=== PATIENT | female | born 1980 | race Caucasian/White ===

== ENCOUNTER 2019-08-11 03:07 | Emergency (ER) | payer MEDICAID, SELFPAY ==
[2019-08-11 03:13] VITALS: BP 130/80; PULSE 112; RESP 20; TEMP 36.7; O2SAT 98; BMI 29.7
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
[2019-08-11] MEDS: acetaminophen-codeine 300-30mg Tablet 1 TAB PO (03:57)
[2019-08-11] MEDS: ibuprofen 600 mg Tablet PO (03:58)
[2019-08-11 04:17] VITALS: BP 126/74; PULSE 106; RESP 18; O2SAT 98
== END 2019-08-11 03:45 | disposition home or self-care (01) ==
PROVIDERS: Emergency Provider Emergency Medicine
DX: L55.9 Sunburn, unspecified (principal)
CPT/HCPCS: 12345; 99281; 99283

== ENCOUNTER → 2019-10-25 14:52 | Outpatient (BNVA) | payer MEDICAID, SELFPAY | PROVIDERS: Referring Provider Internal Medicine; Visit Provider Internal Medicine | DX: E05.90 Thyrotoxicosis, unspecified without thyrotoxic crisis or storm (principal); E04.1 Nontoxic single thyroid nodule; E66.9 Obesity, unspecified; R63.5 Abnormal weight gain | CPT/HCPCS: 99203 ==

== ENCOUNTER 2019-11-11 18:00 | Emergency (ER) | payer MEDICAID, SELFPAY ==
[2019-11-11 18:12] VITALS: BP 149/84; PULSE 76; RESP 18; TEMP 36.3; O2SAT 98; BMI 29.2
== END 2019-11-11 22:12 ==
LOC: ER 18:04
PROVIDERS: Emergency Provider Emergency Medicine
DX: Z53.21 Procedure and treatment not carried out due to patient leaving prior to being seen by health care provider (principal)
CPT/HCPCS: 99281; 99282

== ENCOUNTER → 2019-12-16 14:20 | Outpatient (BNVA) | payer MEDICAID, SELFPAY | PROVIDERS: Visit Provider Internal Medicine | DX: E04.1 Nontoxic single thyroid nodule (principal); E05.90 Thyrotoxicosis, unspecified without thyrotoxic crisis or storm; E66.9 Obesity, unspecified | CPT/HCPCS: 99214 ==

== ENCOUNTER 2019-12-20 15:13 | Outpatient (CLI) | payer MEDICAID, SELFPAY ==
[2019-12-20 17:06] LABS: Free T4 Free Thyroxine 1.47 ng/dL (0.82-1.77); Thyroid Stimulating Hormone 0.01 uIU/mL (0.27-4.20)
[2019-12-21 06:18] LABS: T3 Total 169 ng/dL (76-181)
== END 2019-12-20 15:14 | disposition home or self-care (01) ==
LOC: LAB 15:17
PROVIDERS: Visit Provider Internal Medicine
DX: E05.90 Thyrotoxicosis, unspecified without thyrotoxic crisis or storm (principal)
CPT/HCPCS: 36415; 84439; 84443; 84480

== ENCOUNTER → 2020-04-16 10:51 | Outpatient (BNVA) | payer MEDICAID, SELFPAY | PROVIDERS: Visit Provider Nurse Practitioner | DX: E55.9 Vitamin D deficiency, unspecified (principal); E05.90 Thyrotoxicosis, unspecified without thyrotoxic crisis or storm; E66.9 Obesity, unspecified; Z68.33 Body mass index [BMI] 33.0-33.9, adult; G43.109 Migraine with aura, not intractable, without status migrainosus; E05.00 Thyrotoxicosis with diffuse goiter without thyrotoxic crisis or storm; Z30.46 Encounter for surveillance of implantable subdermal contraceptive | CPT/HCPCS: 80053; 80061; 82306; 84439; 84443; 84481; 85025; 85651; 86140 ==

== ENCOUNTER 2020-05-21 15:56 | Outpatient (CLI) | payer MEDICAID, SELFPAY ==
--- NOTE | 2020-05-21 16:19 | XRR_ITS ---
PROCEDURE INFORMATION: Exam: XR Right Knee Exam date and time: 05/21/2020 4:19 PM Age: 39 years old Clinical indication: Pain; Knee; Right; Additional info: M25.50 - pain in unspecified joint TECHNIQUE: Imaging protocol: XR Right knee. Views: 3 views. Total images: 3 COMPARISON: No relevant prior studies available. FINDINGS: Bones/joints: No visible acute osseous abnormality, fracture, subluxation, or dislocation. No radiographically visible joint effusion. Soft tissues: Soft tissues without evidence of edema, swelling, contusion, emphysema, or radiopaque foreign body. XR/XR knee RT 3V* [id number] IMPRESSION: Nonacute.
--- NOTE | 2020-05-21 16:19 | XRR_ITS ---
PROCEDURE INFORMATION: Exam: XR Cervical Spine Exam date and time: 05/21/2020 4:19 PM Age: 39 years old Clinical indication: Neck pain; Additional info: M25.50 - pain in unspecified joint TECHNIQUE: Imaging protocol: XR of the cervical spine. Views: 2 or 3 views. Total images: 3 COMPARISON: No relevant prior studies available. FINDINGS: Bones/joints: No visible fracture, subluxation, or dislocation. Intervertebral disc space heights preserved. No visible spondylolisthesis. Mild scoliotic curvature. No visible significant facet arthrosis. Soft tissues: Unremarkable. XR/XR cervical spine 3V* [id number] IMPRESSION: Nonacute.
--- NOTE | 2020-05-21 16:19 | XRR_ITS ---
PROCEDURE INFORMATION: Exam: XR Thoracic Spine Exam date and time: 05/21/2020 4:19 PM Age: 39 years old Clinical indication: Pain in thoracic spine; Additional info: M25.50 - pain in unspecified joint TECHNIQUE: Imaging protocol: XR of the thoracic spine. Views: 3 views. Total images: 3 COMPARISON: No relevant prior studies available. FINDINGS: Bones/joints: Normal. No acute fracture. Normal alignment. Soft tissues: Unremarkable. XR/XR thoracic spine 3V* [id number] IMPRESSION: No acute findings.
--- NOTE | 2020-05-21 16:19 | XRR_ITS ---
PROCEDURE INFORMATION: Exam: XR Lumbosacral Spine Exam date and time: 05/21/2020 4:31 PM Age: 39 years old Clinical indication: Low back pain; Prior surgery; Surgery type: C section; Additional info: M25.50 - pain in unspecified joint TECHNIQUE: Imaging protocol: XR of the lumbosacral spine. Views: 2 or 3 views. Total images: 3 COMPARISON: CT abdomen pelvis w con* [id number] 02/01/2018 11:46 PM FINDINGS: Bones/joints: Normal. No acute fracture. Normal alignment. No visible spondylolysis or spondylolisthesis. Soft tissues: Unremarkable. XR/XR lumbar spine 2-3V* [id number] IMPRESSION: No acute findings.
--- NOTE | 2020-05-21 16:19 | XRR_ITS ---
PROCEDURE INFORMATION: Exam: XR Left Knee Exam date and time: 05/21/2020 4:19 PM Age: 39 years old Clinical indication: Pain; Knee; Left; Additional info: M25.50 - pain in unspecified joint TECHNIQUE: Imaging protocol: XR Left knee. Views: 3 views. Total images: 3 COMPARISON: No relevant prior studies available. FINDINGS: Bones/joints: Normal. Soft tissues: Normal. XR/XR knee LT 3V* [id number] IMPRESSION: No acute findings.
== END 2020-05-21 15:57 | disposition home or self-care (01) ==
LOC: RAD 15:59
PROVIDERS: Visit Provider Nurse Practitioner
DX: M25.50 Pain in unspecified joint (principal); M54.6 Pain in thoracic spine; M54.5 Low back pain; M25.561 Pain in right knee; M25.562 Pain in left knee; M54.2 Cervicalgia
CPT/HCPCS: 72040; 72072; 72100; 73562

== ENCOUNTER 2020-10-06 10:20 | Outpatient (CLI) | payer MEDICAID, SELFPAY ==
[2020-10-06 10:40] LABS: Basophils % 0.3 %; Eosinophils # 0.1 10^3/uL (0.0-0.8); Eosinophils % 1.9 %; Hematocrit 35.5 % (37.0-47.0); Hemoglobin 11.9 g/dL (11.5-15.3); Lymphocytes # 1.9 10^3/uL (0.8-4.8); Lymphocytes % 31.8 %; Mean Corpuscular HGB Conc 33.5 g/dL (30.0-36.0); Mean Corpuscular Hemoglobin 31.6 pg (28.0-34.0); Mean Corpuscular Volume 94.4 fl (81-99); Mean Platelet Volume 9.9 fL (7.4-10.4); Monocytes # 0.4 10^3/uL (0.2-0.9); Monocytes % 6.7 %; Neutrophils # 3.51 10^3/uL (1.8-7.7); Neutrophils % 59.1 %; Nucleated Red Blood Cells % 0 %; Platelet Count 255 10^3/cmm (130-400); Red Blood Count 3.76 10^6/uL (4.1-5.3); Red Cell Distribution Width 11.9 % (12.1-15.1); White Blood Count 5.9 10^3/uL (4.0-10.0)
[2020-10-06 11:47] LABS: Alanine Aminotransferase 12 U/L (0-33); Alkaline Phosphatase 58 IU/L (35-105); Anion Gap 12.8 (5-19); Aspartate Amino Transferase 16 U/L (0-32); Blood Urea Nitrogen 6 mg/dL (6-20); Calcium 8.3 mg/dL (8.5-10.5); Carbon Dioxide 23 mmol/L (22-29); Chloride 106 mmol/L (98-107); Chol HDL Ratio 2.76 mg/dL (0.0-4.40); Cholesterol 138 mg/dL (0-200); Globulin 2.7 g/dL (1.3-4.6); Glomerular Filtration Rate 111.9 mL/min (90-130); Glucose 78 mg/dL (65-115); HDL Cholesterol 50 mg/dL (60-100); LDL Cholesterol Calculated 74 mg/dL (50-129); LDL HDL Ratio 1.48 RATIO (0.00-3.22); Osmolality Calculated 282 mOsm/kg (285-295); Potassium 3.8 mmol/L (3.5-5.1); Sodium 138 mmol/L (136-145); Total Bilirubin 0.5 mg/dL (0.15-1.2); Total Protein 6.7 g/dL (6.6-8.7); Triglycerides 69 mg/dL (0-150)
== END 2020-10-06 10:21 | disposition home or self-care (01) ==
PROVIDERS: PCP Nurse Practitioner; Visit Provider Family Medicine
DX: E05.90 Thyrotoxicosis, unspecified without thyrotoxic crisis or storm (principal)
CPT/HCPCS: 80053; 80061; 84443; 85025

== ENCOUNTER 2020-10-24 12:23 | Emergency (ER) | payer MEDICAID, SELFPAY ==
[2020-10-24 12:34] VITALS: BP 139/81; PULSE 86; RESP 17; TEMP 37.1; O2SAT 98
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
--- NOTE | 2020-10-24 13:18 | PC.PHAR ---
PT STATES SHE TAKES CARE OF HER OWN MEDICATIONS-PT STATES SHE STOP TAKING HER CYMBALTA 30MG ON 10/08/20 RX WAS FILLED ON 10/06/20 30DS FOR 30MG DAILY-PT STATES SHE HASNT TAKEN LINZESS 145MCG,METHIMAZOLE 10MG, OR TOPIRAMATE 100MG FOR AT LEAST 4 MONTHS-PT STATES SHE TOOK SOME OF HER HUSBANDS GABAPENTIN 600MG LAST NIGHT TO SEE IF IT WOULD HELP WITH HER PAIN
[2020-10-24 13:52] VITALS: BP 111/77; PULSE 76; RESP 18; O2SAT 97
== END 2020-10-24 13:50 | disposition home or self-care (01) ==
PROVIDERS: Emergency Provider Nurse Practitioner Family; PCP Nurse Practitioner
DX: S13.4XXA Sprain of ligaments of cervical spine, initial encounter (principal); V53.5XXA Driver of pick-up truck or van injured in collision with car, pick-up truck or van in traffic accident, initial encounter
CPT/HCPCS: 72040; 99282

== ENCOUNTER → 2021-02-25 14:35 | Outpatient (BNVA) | payer MEDICAID, SELFPAY | PROVIDERS: PCP Nurse Practitioner; Visit Provider Nurse Practitioner | DX: E05.00 Thyrotoxicosis with diffuse goiter without thyrotoxic crisis or storm (principal) | CPT/HCPCS: 80053; 80061; 84439; 84443; 84481 ==

== ENCOUNTER 2021-04-15 09:26 | Outpatient (CLI) | payer MEDICAID, SELFPAY ==
--- NOTE | 2021-04-15 09:38 | XR_ITS ---
WS: [id number] DEXA (DUAL ENERGY X-RAY ABSORPTIOMETRY) Bone mineral density was performed using a [employer] machine. HISTORY: FX HX OF OSTEOPOROSIS/VITAMIN D DEFICIENCY/BONE PAIN, 40-year-old. COMPARISON: None available. Lumbar spine BMD (L1-L4): 1.089 g/cm2 T score: -0.8 Z score: -1.9 Total hip BMD: Left: 0.973 g/cm2. T score: -0.3 Z score: -0.9 Right: 0.910 g/cm2. T score: -0.8 Z score: -1.4 XR/XR DEXA axial skeleton* [id number] IMPRESSION: NORMAL BONE MINERAL DENSITY based upon the WHO classification for females.
== END 2021-04-15 09:27 | disposition home or self-care (01) ==
LOC: RAD 09:29
PROVIDERS: Visit Provider Family Medicine
DX: E55.9 Vitamin D deficiency, unspecified (principal); M89.8X9 Other specified disorders of bone, unspecified site; Z82.62 Family history of osteoporosis
CPT/HCPCS: 77080

== ENCOUNTER 2021-04-17 09:24 | Outpatient (CLI) | payer MEDICAID, SELFPAY ==
[2021-04-17 09:59] LABS: Basophils % 0.3 %; Eosinophils # 0.1 10^3/uL (0.0-0.8); Eosinophils % 2.3 %; Hematocrit 40.2 % (37.0-47.0); Hemoglobin 13.5 g/dL (11.5-15.3); Lymphocytes # 2.2 10^3/uL (0.8-4.8); Lymphocytes % 36.4 %; Mean Corpuscular HGB Conc 33.6 g/dL (30.0-36.0); Mean Corpuscular Hemoglobin 30.9 pg (28.0-34.0); Mean Platelet Volume 10.1 fL (7.4-10.4); Monocytes # 0.4 10^3/uL (0.2-0.9); Monocytes % 5.8 %; Neutrophils # 3.29 10^3/uL (1.8-7.7); Nucleated Red Blood Cells % 0 %; Platelet Count 278 10^3/cmm (130-400); Red Blood Count 4.37 10^6/uL (4.1-5.3); Red Cell Distribution Width 11.9 % (12.1-15.1)
[2021-04-17 10:29] LABS: Alanine Aminotransferase 13 U/L (0-33); Albumin Level 4.7 g/dL (3.5-5.2); Alkaline Phosphatase 64 IU/L (35-105); Anion Gap 12.2 (5-19); Aspartate Amino Transferase 14 U/L (0-32); Blood Urea Nitrogen 10 mg/dL (6-20); Carbon Dioxide 23 mmol/L (22-29); Chloride 105 mmol/L (98-107); Globulin 3.1 g/dL (1.3-4.6); Glomerular Filtration Rate 111.9 mL/min (90-130); Glucose 76 mg/dL (65-115); Osmolality Calculated 280 mOsm/kg (285-295); Potassium 4.2 mmol/L (3.5-5.1); Sodium 136 mmol/L (136-145); Total Bilirubin 0.5 mg/dL (0.15-1.2); Total Protein 7.8 g/dL (6.6-8.7)
[2021-04-17 10:31] LABS: Erythrocyte Sedimentation Rate 9 mm/hr (0-15)
[2021-04-17 12:51] LABS: 25 Hydroxy Vitamin D 35 ng/mL (30-100)
== END 2021-04-17 09:25 | disposition home or self-care (01) ==
LOC: LAB 09:27
PROVIDERS: PCP Nurse Practitioner; Visit Provider Nurse Practitioner
DX: M79.7 Fibromyalgia (principal); E55.9 Vitamin D deficiency, unspecified
CPT/HCPCS: 36415; 80053; 82306; 85025; 85651; 86140; 86431

== ENCOUNTER → 2021-05-01 13:29 | Outpatient (BNVA) | payer MEDICAID, SELFPAY | PROVIDERS: PCP Nurse Practitioner; Visit Provider Internal Medicine | DX: M79.7 Fibromyalgia (principal); M53.3 Sacrococcygeal disorders, not elsewhere classified; M54.81 Occipital neuralgia; R53.83 Other fatigue; Z82.61 Family history of arthritis; Z87.891 Personal history of nicotine dependence | CPT/HCPCS: 99204 ==

== ENCOUNTER 2021-05-03 08:41 | Outpatient (CLI) | payer MEDICAID, SELFPAY ==
--- NOTE | 2021-05-03 09:03 | XR_ITS ---
WS: [id number] Right hand, 2 views, 05/03/2021 Clinical Data: E55.9 - Vitamin D deficiency, unspecified Comparison: None. Findings: No fractures or dislocations are seen. The soft tissues are unremarkable. The joint space s are normal No periarticular demineralization or calcifications are seen. XR/XR hand RT 2V [id number] Impression: Negative right hand.
--- NOTE | 2021-05-03 09:03 | XR_ITS ---
WS: [id number] Left hand, 2 views, 05/03/2021 Clinical Data: E55.9 - Vitamin D deficiency, unspecified Comparison: None. Findings: No fractures or dislocations are seen. The soft tissues are unremarkable. The joint spaces are normal XR/XR hand LT 2V [id number] Impression: Negative left hand.
[2021-05-03 09:43] LABS: Creatine Phosphokinase 111 U/L (26-192); Ferritin 31 ng/mL (15-150); Iron 116 ug/dL (37-145); Magnesium 1.7 mg/dL (1.7-2.3)
[2021-05-03 09:57] LABS: Vitamin B12 449 pg/mL (232-1245)
[2021-05-03 10:03] LABS: Cortisol Random 7.46 ug/dL (2.47-19.5); Hepatitis B Core AB, Total Non-Reactive (Nonreactive); Hepatitis B Surface Antigen Non-Reactive (Nonreactive); Hepatitis C Virus Antibody Non-Reactive (Nonreactive)
[2021-05-06 11:21] LABS: COMPLEMENT COMPONENT C3C 121 mg/dL (83-193); COMPLEMENT COMPONENT C4C 25 mg/dL (15-57)
[2021-05-06 12:48] LABS: Gliadin Ab.IgA <1.0 U/mL; Gliadin Ab.IgG 2.1 U/mL; Tissue Transglutaminase IgA Ab <1.0 U/mL; Tissue transglutaminase Ab.IgG <1.0 U/mL
[2021-05-06 13:34] LABS: THYROID PEROXIDASE ANTIBODIES 358 IU/mL (<9)
[2021-05-06 13:53] LABS: Lymes IGG WB <0.90 index
[2021-05-06 14:03] LABS: CENTROMERE B ANTIBODY <1.0 NEG AI (<1.0 NEG); JO-1 ANTIBODY <1.0 NEG AI (<1.0 NEG); RNP ANTIBODY <1.0 NEG AI (<1.0 NEG); SCL-70 ANTIBODY <1.0 NEG AI (<1.0 NEG); SJOGREN'S ANTIBODY (SS-A) <1.0 NEG AI (<1.0 NEG); SM ANTIBODY <1.0 NEG AI (<1.0 NEG); SS-B <1.0 NEG AI (<1.0 NEG)
[2021-05-06 15:23] LABS: Immunoglobulin A 105 mg/dL (47-310)
[2021-05-06 15:26] LABS: COMPLEMENT, TOTAL (CH50) >60 U/mL (31-60)
[2021-05-07 12:23] LABS: ANA SCREEN, IFA POSITIVE (NEGATIVE)
[2021-05-07 15:36] LABS: DNA AB (DS) CRITHIDIA,IFA NEGATIVE (NEGATIVE)
== END 2021-05-03 08:42 | disposition home or self-care (01) ==
LOC: LAB 08:43
PROVIDERS: PCP Nurse Practitioner; Visit Provider Internal Medicine
DX: E55.9 Vitamin D deficiency, unspecified (principal); E05.00 Thyrotoxicosis with diffuse goiter without thyrotoxic crisis or storm; I10 Essential (primary) hypertension; K58.2 Mixed irritable bowel syndrome; M54.2 Cervicalgia; M79.7 Fibromyalgia
CPT/HCPCS: 36415; 73120; 82533; 82550; 82607; 82728; 82784; 83516; 83540; 83735; 86140; 86160; 86162; 86235; 86255; 86376; 86617; 86704; 86803; 87340

== ENCOUNTER → 2021-05-31 08:50 | Outpatient (BNVA) | payer MEDICAID, SELFPAY | PROVIDERS: PCP Nurse Practitioner; Visit Provider Internal Medicine | DX: M79.7 Fibromyalgia (principal); M25.50 Pain in unspecified joint; R76.8 Other specified abnormal immunological findings in serum; R53.83 Other fatigue; Z79.899 Other long term (current) drug therapy | CPT/HCPCS: 99214 ==

== ENCOUNTER → 2021-07-09 10:32 | Outpatient (BNVA) | payer MEDICAID, SELFPAY | PROVIDERS: PCP Nurse Practitioner; Visit Provider Nurse Practitioner | DX: I10 Essential (primary) hypertension (principal); E66.9 Obesity, unspecified; E55.9 Vitamin D deficiency, unspecified; M25.50 Pain in unspecified joint; M25.562 Pain in left knee | CPT/HCPCS: 73562; 82306 ==

== ENCOUNTER 2021-07-14 15:08 | Emergency (ER) | payer MEDICAID, SELFPAY ==
[2021-07-14 15:19] VITALS: BP 139/90; PULSE 69; RESP 16; TEMP 37.3; O2SAT 98; BMI 33.7
--- NOTE | 2021-07-14 15:36 | CTR_ITS ---
PROCEDURE INFORMATION: Exam: CT Abdomen And Pelvis Without Contrast Exam date and time: 07/14/2021 4:36 PM Age: 41 years old Clinical indication: Abdominal pain; Flank; Right; Additional info: Abd pain TECHNIQUE: Imaging protocol: Computed tomography of the abdomen and pelvis without contrast. Radiation optimization: All CT scans at this facility use at least one of these dose optimization techniques: automated exposure control; mA and/or kV adjustment per patient size (includes targeted exams where dose is matched to clinical indication); or iterative reconstruction. COMPARISON: CT abdomen pelvis w con* [id number] 02/01/2018 11:46 PM RADIATION DOSE METRICS: Total DLP (mGy-cm): 1752.15 FINDINGS: Liver: Normal. No mass. Gallbladder and bile ducts: Normal. No calcified stones. No ductal dilation. Pancreas: Normal. No ductal dilation. Spleen: Normal. No splenomegaly. Adrenal glands: Normal. No mass. Kidneys and ureters: Normal. No renal stone or hydronephrosis. Stomach and bowel: Unremarkable. No obstruction. No mucosal thickening. Appendix: The appendix is normal. Intraperitoneal space: Unremarkable. No free air. No significant fluid collection. Vasculature: Unremarkable. No abdominal aortic aneurysm. Lymph nodes: Unremarkable. No enlarged lymph nodes. Urinary bladder: Faint perivesicular fat stranding is appreciated. Reproductive: The uterus and ovaries appear normal. Bones/joints: Unremarkable. No acute fracture. Soft tissues: Unremarkable. CT/CT abdomen pelvis wo con [id number] IMPRESSION: Possible mild cystitis, correlate with urinalysis. No renal stone is seen.
--- NOTE | 2021-07-14 15:38 | ED_ITS ---
HPI - Abdominal Pain General: Chief Complaint: Abdominal Pain Stated Complaint: Right side abd pain Time Seen by Provider: 07/14/21 15:13 Source: patient Mode of arrival: ambulatory Limitations: no limitations History of Present Illness: 41-year-old female states that she had woke up this morning with right-sided flank pain also right side abdominal pain states she feels like she is having spasms in her right flank. She denies any vomiting diarrhea denies any fever she denies any worsening proving factors she states her pain currently is a 6 out of 10. MD elicited complaint: abdominal pain Associated Symptoms: Denies chills and fever(s) Review of Systems Const: Denies: fever(s), chills, body aches or change in appetite Eyes: Denies: blurry vision or eye discomfort ENMT: Denies: throat pain or dental pain Card: Denies: chest pain Resp: Denies: dyspnea GI: Reports: abdominal pain : Reports: flank pain Musc: Denies: neck pain or back pain Skin/Breast: Denies: rash Neuro: Denies: headache(s) Psych: Denies: depression Brian/Lymph: Denies: easy bruising All/Imm: Denies: urticaria PFSH ED PFSH: Medical History NEIDA positive Essential hypertension Graves disease Diagnosed in 2017 Irritable bowel syndrome with constipation and diarrhea Migraine with aura and without status migrainosus, not intractable Migraines since age 27 No pertinent past medical history Denies diabetes, asthma, hypertension, seizures, DVT/PE PCP: EMIL Ureña Surgical History S/P dilation and curettage 2015-done for miscarriage Status post delivery X2 2002, 2005 Family History Mother Hypertension Family/Other Breast cancer maternal aunt, diagnosed at age 67 Thyroid condition maternal aunt Other Cancer Chronic kidney disease (CKD) Diabetes Rheumatoid arthritis Denies family history of Colon cancer Ovarian cancer Lupus CAD (coronary artery disease) Hyperlipidemia Uterine cancer Stroke Social History Smoking and tobacco status: never smoked Second hand smoke exposure: No Smoking risk assessment/counseling performed?: No Alcohol intake: current Alcohol intake frequency: few times a month Desire information about alcohol rehabilitation?: No Counseling given: No Desire information about substance/drug rehabilitation?: No Counseling given: No Adopted: No Caregiver/support person: No Lives independently: Yes Household members: spouse Housing: House Marital status: Number of children: 2 service: Yes Current occupational status: employed History of recent travel: No Current gender identity: Female Physical Exam Const: COMMON NORMALS: no acute distress, patient oriented x3 and healthy appearing HENMT: COMMON NORMALS: normocephalic and atraumatic HEAD & SCALP: no rmocephalic and atraumatic Eye: COMMON NORMALS: Equal, round and reactive pupils present and EOMs intact bilaterally PUPIL: Yes Equal, round and reactive pupils present Neck/C-Spine: COMMON NORMALS: full ROM and supple Chest: COMMONS NORMALS: normal inspection of the chest and normal palpation of entire chest wall Resp: COMMON NORMALS: normal respiratory effort, No retractions, No use of accessory muscles and clear to auscultation bilaterally AUSCULTATION: clear to auscultation bilaterally Cardio: COMMON NORMALS: regular rate, regular rhythm and No murmurs present (Cardio) RATE: regular rate RHYTHM: regular rhythm GI: COMMON NORMALS: Normal to inspection, nondistended, normoactive bowel sounds present, Soft to palpation, non-tender and no masses PALPATION: Yes Soft to palpation : COMMON NORMALS: Yes no CVA tenderness BLADDER/KIDNEY EXAM: Yes no CVA tenderness Back/Pelvis: COMMON NORMALS: no CVA tenderness Extremity: COMMON NORMALS: normal to inspection and full ROM Neuro: COMMON NORMALS: patient oriented x3, moves all extremities and no focal motor deficits Psych: COMMON NORMALS: mental status grossly normal, Normal thought process present and cooperative THOUGHT PROCESS: Normal thought process present Skin: COMMON NORMALS: no rashes or lesions noted and no wounds GENERAL SKIN EXAM: no rashes or lesions noted Course Vital Signs: Vital signs: Vital Signs Temperature 99.2 F 07/14/21 15:19 Pulse Rate 88 07/14/21 15:52 Respiratory Rate 18 07/14/21 15:52 Blood Pressure 140/89 07/14/21 15:52 Pulse Oximetry 99 07/14/21 15:52 MDM - Abdominal Pain Medical Decision Making Patient presents here with abdominal pain with a possible UTI she feels much improved discharge exam at discharge is benign she is stable for discharge we will place her on Keflex she is to return if worsening follow-up PCP she understands agrees to plan. Lab Data : 07/14/21 15:40 07/14/21 15:40 Labs/Radiology: Radiology Impressions Abdomen/Pelvis CT 07/14/21 15:36 IMPRESSION: Possible mild cystitis, correlate with urinalysis. No renal stone is seen. Laboratory Results WBC 8.1 10^3/uL (4.0-10.0) 07/14/21 15:40 RBC 3.90 10^6/uL (4.1-5.3) L 07/14/21 15:40 Hgb 12.5 g/dL (11.5-15.3) 07/14/21 15:40 Hct 35.7 % (37.0-47.0) L 07/14/21 15:40 MCV 91.5 fl (81-99) 07/14/21 15:40 MCH 32.1 pg (28.0-34.0) 07/14/21 15:40 MCHC 35.0 g/dL (30.0-36.0) 07/14/21 15:40 RDW 11.9 % (12.1-15.1) L 07/14/21 15:40 Plt Count 270 10^3/cmm (130-400) 07/14/21 15:40 MPV 10.0 fL (7.4-10.4) 07/14/21 15:40 Neut % (Auto) 58.0 % 07/14/21 15:40 Lymph % (Auto) 33.5 % 07/14/21 15:40 [place] % (Auto) 6.2 % 07/14/21 15:40 Eos % (Auto) 2.0 % 07/14/21 15:40 Baso % (Auto) 0.1 % 07/14/21 15:40 Neut # (Auto) 4.71 10^3/uL (1.8-7.7) 07/14/21 15:40 Lymph # (Auto) 2.7 10^3/uL (0.8-4.8) 07/14/21 15:40 [place] # (Auto) 0.5 10^3/uL (0.2-0.9) 07/14/21 15:40 Eos # (Auto) 0.2 10^3/uL (0.0-0.8) 07/14/21 15:40 Baso # (Auto) 0.0 10^3/uL (0.0-0.1) 07/14/21 15:40 Nucleated RBC % (auto) 0 % 07/14/21 15:40 Nucleated RBCs # 0.0 /100WBC 07/14/21 15:40 Sodium 136 mmol/L (136-145) 07/14/21 15:40 Potassium 4.2 mmol/L (3.5-5.1) 07/14/21 15:40 Chloride 103 mmol/L (98-107) 07/14/21 15:40 Carbon Dioxide 23 mmol/L (22-29) 07/14/21 15:40 Anion Gap 14.2 (5-19) 07/14/21 15:40 BUN 7 mg/dL (6-20) 07/14/21 15:40 Creatinine 0.7 mg/dL (0.5-0.9) 07/14/21 15:40 GFR Calculation 93.2 mL/min (90-130) 07/14/21 15:40 Glucose 97 mg/dL (65-115) 07/14/21 15:40 Calculated Osmolality 280 mOsm/kg (285-295) L 07/14/21 15:40 Calcium 8.1 mg/dL (8.5-10.5) L 07/14/21 15:40 Total Bilirubin 0.3 mg/dL (0.15-1.2) 07/14/21 15:40 AST 16 U/L (0-32) 07/14/21 15:40 ALT 11 U/L (0-33) 07/14/21 15:40 Alkaline Phosphatase 59 IU/L (35-105) 07/14/21 15:40 Total Protein 6.5 g/dL (6.6-8.7) L 07/14/21 15:40 Albumin 4.3 g/dL (3.5-5.2) 07/14/21 15:40 Globulin 2.2 g/dL (1.3-4.6) 07/14/21 15:40 Lipase 25 U/L (13-60) 07/14/21 15:40 HCG, Qual Negative (Negative) 07/14/21 15:40 Urine Color Dark yellow (Yellow) 07/14/21 15:50 Urine Appearance Clear (CLEAR) 07/14/21 15:50 Urine pH 6 (5-7) 07/14/21 15:50 Ur Specific [place] 1.020 (1.005-1.030) 07/14/21 15:50 Urine Protein Neg (Negative) 07/14/21 15:50 Urine Glucose (UA) Norm (Normal) 07/14/21 15:50 Urine Ketones Negative (Negative) 07/14/21 15:50 Urine Blood 3+ (Negative) H 07/14/21 15:50 Urine Nitrate Negative (Negative) 07/14/21 15:50 Urine Bilirubin Neg (Negative) 07/14/21 15:50 Urine Urobilinogen 4 mg/dL (Negative) H 07/14/21 15:50 Ur Leukocyte Esterase Negative (Negative) 07/14/21 15:50 Urine RBC 5-10 /hpf (0-2) H 07/14/21 15:50 Urine WBC 0-4 /hpf (0-5) H 07/14/21 15:50 Ur Squamous Epith Cells 10-15 /hpf (0-5) H 07/14/21 15:50 Amorphous Sediment Not Reportable 07/14/21 15:50 Urine Bacteria 1+ /hpf (NONE) H 07/14/21 15:50 Urine Mucus 2+ /hpf 07/14/21 15:50 Discharge Plan Discharge Patient Disposition: Home Clinical Impression: Abdominal pain Qualifiers: Abdominal location: generalized Qualified Code(s): R10.84 - Generalized abdominal pain Acute cystitis Qualifiers: Hematuria presence: without hematuria Qualified Code(s): N30.00 - Acute cystitis without hematuria Condition: Stable Prescriptions: New cephalexin 500 mg capsule 500 mg PO TID 7 Days Qty: 21 0RF ondansetron 4 mg tablet,disintegrating 4 mg PO Q6H PRN (Reason: nausea and vomiting) Qty: 14 0RF Naprosyn 500 mg tablet 500 mg PO BID PRN (Reason: pain) Qty: 20 0RF No Action Nexplanon 68 mg implant See Rx Instructions .ROUTE .COMPLEX 0RF Rx Instructions: subdermally EVERY 3 YEARS meloxicam 15 mg tablet 15 mg PO DAILY Qty: 30 2RF valsartan [Diovan] 40 mg tablet 40 mg PO DAILY Qty: 90 0RF Ozempic 0.25 mg or 0.5 mg(2 mg/1.5 mL) pen injector 0.5 mg SUBCUT .weekly Qty: 1.5 0RF ergocalciferol (vitamin D2) 1,250 mcg (50,000 unit) capsule 1,250 mcg PO Q7D Qty: 4 1RF Rx Instructions: ON MONDAYS Tylenol Extra Strength 500 mg Tablet 1,000 mg PO Q4H PRN (Reason: Pain) 0RF Discharge Orders: Discharge ED (Routine); Ordered 07/14/21 Ordered By: Lakia Lai Referrals: Omaira Velazquez, [employer] [Primary Care Provider] - 1-3 days Discharge Diet: Advance as tolerated Discharge Activity: Resume usual activity Patient Instructions: Abdominal Pain (ED) Coding Level of Care Code ED Crayon Sawyer for George Fwd Exam Comprehensive
[2021-07-14] MEDS: sodium chloride 0.9% 1,000 ML 999 ML IV (15:51)
[2021-07-14] MEDS: ondansetron 2 mg/ML SDV 2 mL 4 MG IVP (15:51)
[2021-07-14 15:52] VITALS: BP 140/89; PULSE 88; RESP 18; O2SAT 99
[2021-07-14 15:54] LABS: Basophils % 0.1 %; Eosinophils # 0.2 10^3/uL (0.0-0.8); Hematocrit 35.7 % (37.0-47.0); Hemoglobin 12.5 g/dL (11.5-15.3); Lymphocytes # 2.7 10^3/uL (0.8-4.8); Lymphocytes % 33.5 %; Mean Corpuscular Hemoglobin 32.1 pg (28.0-34.0); Mean Corpuscular Volume 91.5 fl (81-99); Monocytes # 0.5 10^3/uL (0.2-0.9); Monocytes % 6.2 %; Neutrophils # 4.71 10^3/uL (1.8-7.7); Nucleated Red Blood Cells % 0 %; Platelet Count 270 10^3/cmm (130-400); Red Cell Distribution Width 11.9 % (12.1-15.1); White Blood Count 8.1 10^3/uL (4.0-10.0)
[2021-07-14 16:14] LABS: HCG, Serum Qual Negative (Negative)
[2021-07-14 16:16] LABS: Alanine Aminotransferase 11 U/L (0-33); Albumin Level 4.3 g/dL (3.5-5.2); Alkaline Phosphatase 59 IU/L (35-105); Blood Urea Nitrogen 7 mg/dL (6-20); Calcium 8.1 mg/dL (8.5-10.5); Carbon Dioxide 23 mmol/L (22-29); Chloride 103 mmol/L (98-107); Globulin 2.2 g/dL (1.3-4.6); Glomerular Filtration Rate 93.2 mL/min (90-130); Glucose 97 mg/dL (65-115); Lipase 25 U/L (13-60); Osmolality Calculated 280 mOsm/kg (285-295); Sodium 136 mmol/L (136-145); Total Bilirubin 0.3 mg/dL (0.15-1.2); Total Protein 6.5 g/dL (6.6-8.7)
[2021-07-14 16:21] LABS: Add Urine Microscopic? YES; Bilirubin Urine Neg (Negative); Blood Urine 3+ (Negative); Glucose Urine UA Norm (Normal); Ketones Urine Negative (Negative); Leukocyte Esterase Urine Negative (Negative); Nitrate Urine Negative (Negative); Protein Urine Neg (Negative); Urine Appearance Clear (CLEAR); Urine Color Dark Yellow (Yellow); Urobilinogen Urine 4 mg/dL (Negative); pH Urine 6 (5-7)
[2021-07-14 16:28] LABS: Anion Gap 14.2 (5-19); Aspartate Amino Transferase 16 U/L (0-32); Potassium 4.2 mmol/L (3.5-5.1)
[2021-07-14 16:40] LABS: Bacteria Urine 1+ /hpf; Mucus Urine 2+ /hpf; WBC Urine 0-4 /hpf (0-5)
[2021-07-14 16:41] LABS: Add Urine Culture? No
[2021-07-14 17:24] VITALS: BP 126/78; PULSE 70; RESP 18; TEMP 36.9; O2SAT 90
== END 2021-07-14 17:33 | disposition home or self-care (01) ==
PROVIDERS: Emergency Provider Emergency Medicine; PCP Nurse Practitioner
DX: R10.84 Generalized abdominal pain (principal); N30.00 Acute cystitis without hematuria
CPT/HCPCS: 74176; 80053; 81001; 83690; 84703; 85025; 96361; 96374; 99284; J2405; J7030

== ENCOUNTER → 2021-07-17 13:32 | Outpatient (BNVA) | payer MEDICAID, SELFPAY | PROVIDERS: PCP Nurse Practitioner; Referring Provider Nurse Practitioner; Visit Provider Specialist | DX: M25.562 Pain in left knee (principal) | CPT/HCPCS: 73560; 73565; 99204 ==

== ENCOUNTER → 2021-08-21 14:39 | Outpatient (BNVA) | payer MEDICAID, SELFPAY | PROVIDERS: PCP Nurse Practitioner; Visit Provider Internal Medicine | DX: M79.7 Fibromyalgia (principal); R53.83 Other fatigue; R76.8 Other specified abnormal immunological findings in serum; R31.9 Hematuria, unspecified | CPT/HCPCS: 81001; 83735; 84100; 84443; 85651; 86140; 87086; 99214 ==

== ENCOUNTER → 2023-04-09 08:57 | Outpatient (BNVA) | payer MEDICAID, SELFPAY | PROVIDERS: PCP Nurse Practitioner; Visit Provider Nurse Practitioner | DX: E55.9 Vitamin D deficiency, unspecified (principal); E05.00 Thyrotoxicosis with diffuse goiter without thyrotoxic crisis or storm; I10 Essential (primary) hypertension | CPT/HCPCS: 80053; 82306; 84443 ==

== ENCOUNTER 2023-04-23 14:26 | Emergency (ER) | payer MEDICAID, SELFPAY ==
[2023-04-23 14:30] VITALS: BP 166/103; PULSE 83; RESP 16; TEMP 36.6; O2SAT 97
--- NOTE | 2023-04-23 14:41 | XR_ITS ---
WS: [id number] Exam: XR ankle LT min 3V* [id number] Date/Time of Exam: 04/23/2023 2:41 PM Reason For Exam: left ankle pain Findings: Multiple views of the ankle reveal no fracture or displacements of bone. No soft tissue swelling is present. There are no periosteal reactions noted. The talus and calcaneus are in adequate position. The joint space is smooth and equidistant. IMPRESSION: Negative LEFT ankle.
--- NOTE | 2023-04-23 14:42 | XR_ITS ---
WS: [id number] Exam: XR foot LT min 3V* [id number] Date/Time of Exam: 04/23/2023 2:42 PM Reason For Exam: left foot pain Findings: The foot was examined in multiple views and reveals no fractures or displacements of bone. No bony a nomalies are noted. The bony elements are in adequate alignment. The joint spaces are smooth and eq uidistant. IMPRESSION: Negative LEFT foot.
--- NOTE | 2023-04-23 14:45 | W.ED.EXTPRO ---
Documented by User: GERMÁN Parrish 04/23/23 15:40 HPI - Extremity Problem General: Chief complaint: Extremity Injury, Lower Stated complaint: left foot pains Time Seen by Provider: 04/23/23 14:34 Source: patient Mode of arrival: ambulatory Limitations: no limitations History of Present Illness: Patient is a 42-year-old female with past medical history of fibromyalgia who presents to the emergency department complaining of left foot pain onset 2 weeks. Patient states she was walking outside when she stepped in a mud hole and felt immediate pain to the lateral aspect of her left foot. She denies any twisting injury or hearing any pop, and denies any prior surgeries to the ankle. She does state that she has a history of recurrent ankle sprains to the same ankle, and believes that her foot is unstable. She also notes that she is starting to have pain to the left ankle. She has used ice at night, as well as heat with minimal relief. She states that her pain is worse when she puts all her weight on it, but it is not reproducible with palpation. The pain is getting worse and has become more constant since onset. She denies any paresthesias, numbness, weakness, bruising, or overlying skin changes. MD Complaint: extremity pain (Left foot) and joint pain (Left ankle) Onset (ago): week(s) (2) Pain Consistency: constant Location: left Radiation: proximal Relieving factors: cold therapy and rest Exacerbating factors: weight bearing and walking Associated symptoms: Reports no associated symptoms; Deny chest pain, fever(s) or rash Context: other (History of fibromyalgia) Review of Systems General: Reports: 10 or more systems reviewed and unremarkable except in HPI and below Const: Denies: fever(s), chills or fatigue Eyes: Denies: change in vision ENMT: Denies: throat pain, ear or mastoid pain or nasal discharge Card: Denies: chest pain, palpitations, swelling of feet/ankles or lightheadedness Resp: Denies: dyspnea, productive cough or wheezing GI: Denies: abdominal pain, nausea, vomiting, diarrhea or constipation : Denies: flank pain, difficulty voiding, dysuria or urinary frequency Musc: Reports: extremity pain (Left foot) and joint pain (Left ankle); Denies: neck pain, back pain, extremity swelling, joint swelling, joint redness, joint warmth, joint stiffness or limited range of motion Skin/Breast: Denies: rash Neuro: Reports: difficulty walking (From pain); Denies: headache(s), numbness in extremities, weakness in extremities, sensory changes, lack of coordination or dizziness PFSH ED PFSH: Medical History NEIDA positive Essential hypertension Irritable bowel syndrome with constipation and diarrhea No pertinent past medical history Denies diabetes, asthma, hypertension, seizures, DVT/PE PCP: EMIL Ureña Migraine with aura and without status migrainosus, not intractable Migraines since age 27 Graves disease Diagnosed in 2017 Surgical History S/P dilation and curettage 2014-done for miscarriage Status post delivery X2 2002, 2005 Family History Mother Hypertension Family/Other Breast cancer maternal aunt, diagnosed at age 67 Thyroid disease maternal aunt Other Cancer Chronic kidney disease (CKD) Diabetes Rheumatoid arthritis Denies family history of Colon cancer Ovarian cancer Lupus CAD (coronary artery disease) Hyperlipidemia Uterine cancer Stroke Social History Smoking and tobacco/nicotine status: former use of tobacco/nicotine Second hand smoke exposure: No Alcohol intake: current Alcohol intake frequency: few times a month Substance/Drug Use: unknown Adopted: No Caregiver/support person: No Lives independently: Yes Household members: spouse Housing: House Marital status: Number of children: 2 service: Yes Current occupational status: employed Do you think of yourself as: Straight/Heterosexual Current gender identity: Female Female Reproductive History: Date of last menstrual period: 04/22/23 Physical Exam Const: COMMON NORMALS: no acute distress, patient oriented x3 and no limitations GENERAL APPEARANCE: cooperative, comfortable and well developed ORIENTATION/CONSCIOUSNESS: Yes awake, Yes oriented to person, Yes oriented to place and Yes oriented to time HENMT: COMMON NORMALS: normocephalic, atraumatic and hearing grossly normal bilaterally HEAD & SCALP: normocephalic and atraumatic Eye: COMMON NORMALS: EOMs intact bilaterally and conjunctivae normal CONJUNCTIVA: Yes conjunctivae normal Neck/C-Spine: COMMON NORMALS: full ROM Resp: COMMON NORMALS: normal respiratory effort, No retractions and No use of accessory muscles Extremity: COMMON NORMALS: normal to inspection, full ROM, capillary refill normal, no joint enlargement, no clubbing, cyanosis or edema, no calf tenderness and no pedal edema OTHER: Lateral left foot is tender to palpation, with no specific bony point tenderness. No forefoot tenderness to palpation. She has a positive inversion and eversion ankle testing. Negative calcaneal squeeze or ankle squeeze. Negative talar tilt. No evidence of bruising or deformity. No erythema. Sensations intact distally. Good strength bilaterally. Neuro: COMMON NORMALS: patient oriented x3, moves all extremities, no focal motor deficits and no sensory deficits noted SENSORIUM/ORIENTATION: Yes oriented to person, Yes oriented to place and Yes oriented to time Psych: COMMON NORMALS: mental status grossly normal and Normal thought process present THOUGHT PROCESS: Normal thought process present Skin: COMMON NORMALS: no rashes or lesions noted GENERAL SKIN EXAM: no rashes or lesions noted Course Vital Signs: Vital signs: Vital Signs Temperature 97.9 F 04/23/23 14:30 Pulse Rate 83 04/23/23 14:30 Respiratory Rate 16 04/23/23 14:30 Blood Pressure 166/103 04/23/23 14:30 Pulse Oximetry 97 04/23/23 14:30 Oxygen Delivery Me thod Room Air 04/23/23 14:30 MDM - Extremity (Nontraumatic) Medical Decision Making This patient is a 42-year-old female who was seen and evaluated in the emergency department today for left foot and ankle pain onset 2 weeks. Patient's vitals have been unremarkable throughout her ED course. Pain improved after administration of p.o. Tylenol. Examination was overall unremarkable aside from some tenderness with range of motion with inversion and eversion of the left ankle/foot. No bony point tenderness. X-ray of the left foot and left ankle were both unremarkable and showed no signs of acute fracture or dislocation. Patient will be put in a posterior short leg splint and given follow-up for podiatry. Patient agrees with this plan and reasons to return are discussed. Patient discharged home. All radiology interpretation(s) finalized by discharge Discharge Plan Discharge Patient Disposition: Home Clinical Impression: Left foot pain Condition: Stable Prescriptions: No Action Nexplanon 68 mg implant See Rx Instructions .ROUTE .COMPLEX Rx Instructions: subdermally EVERY 3 YEARS gabapentin 100 mg capsule 100 mg PO BID Rx Instructions: AT bed time acarbose 25 mg tablet 25 mg PO TID Qty: 90 2RF Rx Instructions: take before food cyclobenzaprine 5 mg tablet 5 mg PO .HS PRN (Reason: muscle pain) Qty: 90 1RF ergocalciferol (vitamin D2) 1,250 mcg (50,000 unit) capsule 1,250 mcg PO Q7D Qty: 4 5RF Discharge Orders: Discharge ED (Routine); Ordered 04/23/23 Ordered By: Ibrahima Burns Referrals: Omaira Velazquez FNP-C [Primary Care Provider] - Discharge Diet: Usual diet Discharge Activity: Limit activity as instructed Patient Instructions: Foot Sprain (ED) Activity Restrictions/Additional Instructions: Use crutches for weightbearing. Tylenol or ibuprofen as needed for pain. Ice and elevation.. Follow-up with podiatry. Return with any new or worsening symptoms. Coding Level of Care Code ED [employer] for Chg Fwd Documented by User: Donovan Powers DO 04/24/23 06:10 HPI - Extremity Problem General: Chief complaint: Extremity Injury, Lower Stated complaint: left foot pains Time Seen by Provider: 04/23/23 14:34 PFSH ED PFSH: Medical History NEIDA positive Essential hypertension Irritable bowel syndrome with constipation and diarrhea No pertinent past medical history Denies diabetes, asthma, hypertension, seizures, DVT/PE PCP: EMIL Ureña Migraine with aura and without status migrainosus, not intractable Migraines since age 27 Graves disease Diagnosed in 2017 Surgical History S/P dilation and curettage 2014-done for miscarriage Status post delivery X2 2002, 2005 Family History Mother Hypertension Family/Other Breast cancer maternal aunt, diagnosed at age 67 Thyroid disease maternal aunt Other Cancer Chronic kidney disease (CKD) Diabetes Rheumatoid arthritis Denies family history of Colon cancer Ovarian cancer Lupus CAD (coronary artery disease) Hyperlipidemia Uterine cancer Stroke Social History Smoking and tobacco/nicotine status: former use of tobacco/nicotine Second hand smoke exposure: No Alcohol intake: current Alcohol intake frequency: few times a month Substance/Drug Use: unknown Adopted: No Caregiver/support person: No Lives independently: Yes Household members: spouse Housing: House Marital status: Number of children: 2 service: Yes Current occupational status: employed Do you think of yourself as: Straight/Heterosexual Current gender identity: Female Course Vital Signs: Vital signs: Vital Signs Temperature 97.9 F 04/23/23 14:30 Pulse Rate 83 04/23/23 14:30 Respiratory Rate 16 04/23/23 14:30 Blood Pressure 166/103 04/23/23 14:30 Pulse Oximetry 97 04/23/23 14:30 Oxygen Delivery Me thod Room Air 04/23/23 14:30 MDM - Extremity (Nontraumatic) Medical Decision Making This patient is a 42-year-old female who was seen and evaluated in the emergency department today for left foot and ankle pain onset 2 weeks. Patient's vitals have been unremarkable throughout her ED course. Pain improved after administration of p.o. Tylenol. Examination was overall unremarkable aside from some tenderness with range of motion with inversion and eversion of the left ankle/foot. No bony point tenderness. X-ray of the left foot and left ankle were both unremarkable and showed no signs of acute fracture or dislocation. Patient will be put in a posterior short leg splint and given follow-up for podiatry. Patient agrees with this plan and reasons to return are discussed. Patient discharged home... Chart reviewed and patient discussed with midlevel. Agree with assessment and plan. Discharge Plan Discharge Patient Disposition: Home Clinical Impression: Left foot pain Condition: Stable Prescriptions: No Action Nexplanon 68 mg implant See Rx Instructions .ROUTE .COMPLEX Rx Instructions: subdermally EVERY 3 YEARS gabapentin 100 mg capsule 100 mg PO BID Rx Instructions: AT bed time acarbose 25 mg tablet 25 mg PO TID Qty: 90 2RF Rx Instructions: take before food cyclobenzaprine 5 mg tablet 5 mg PO .HS PRN (Reason: muscle pain) Qty: 90 1RF ergocalciferol (vitamin D2) 1,250 mcg (50,000 unit) capsule 1,250 mcg PO Q7D Qty: 4 5RF Discharge Orders: Discharge ED (Routine); Ordered 04/23/23 Ordered By: Ibrahima Burns Referrals: Omaira Velazquez, [employer] WORKER[employer] [Primary Care Provider] - Discharge Diet: Usual diet Discharge Activity: Limit activity as instructed Patient Instructions: Foot Sprain (ED) Activity Restrictions/Additional Instructions: Use crutches for weightbearing. Tylenol or ibuprofen as needed for pain. Ice and elevation.. Follow-up with podiatry. Return with any new or worsening symptoms. Coding Level of Care Code ED [employer] for George Garza
[2023-04-23] MEDS: acetaminophen 325 mg Tablet 1000 MG PO (14:51)
--- NOTE | 2023-04-24 04:10 | DCPLANNER ---
Message sent to Podiatry for follow up- complaining of left foot pain onset 2 weeks
== END 2023-04-23 15:49 | disposition home or self-care (01) ==
PROVIDERS: Emergency Provider Physician Assistant; PCP Nurse Practitioner
DX: M79.672 Pain in left foot (principal); Z87.891 Personal history of nicotine dependence; I10 Essential (primary) hypertension
CPT/HCPCS: 29515; 73610; 73630; 99283; E0114

== ENCOUNTER → 2023-05-12 13:30 | Outpatient (BNVA) | payer MEDICAID, SELFPAY | PROVIDERS: PCP Nurse Practitioner; Visit Provider Nurse Practitioner Women's Health | DX: Z30.46 Encounter for surveillance of implantable subdermal contraceptive (principal); Z30.9 Encounter for contraceptive management, unspecified; Z11.3 Encounter for screening for infections with a predominantly sexual mode of transmission | CPT/HCPCS: 86592; 86803; 87340; 87806 ==

== ENCOUNTER → 2023-08-12 13:46 | Outpatient (BNVA) | payer MEDICAID, SELFPAY | PROVIDERS: PCP Nurse Practitioner; Visit Provider Nurse Practitioner | DX: E55.9 Vitamin D deficiency, unspecified (principal); E05.00 Thyrotoxicosis with diffuse goiter without thyrotoxic crisis or storm; R00.0 Tachycardia, unspecified; G43.109 Migraine with aura, not intractable, without status migrainosus; M25.50 Pain in unspecified joint | CPT/HCPCS: 80053; 82306; 82607; 84443 ==

== ENCOUNTER 2023-09-14 20:04 | Emergency (ER) | payer MEDICAID, SELFPAY ==
[2023-09-14 20:20] VITALS: BP 147/90; PULSE 72; RESP 16; TEMP 36.8; O2SAT 100
--- NOTE | 2023-09-14 21:19 | ED_ITS ---
HPI - Headache General: Chief Complaint: Headache Stated Complaint: Headace Time Seen by Provider: 09/14/23 20:53 Source: patient Mode of arrival: ambulatory Limitations: no limitations History of Present Illness: Patient is a 43-year-old female who presents to the emergency department complaining of headache onset this morning. Patient reports history of migraines. States that the pain is behind the left eye, states this feels identical to prior migraines just worse. Pain began at 0630 this morning and has worsened throughout the day. States that it is worsened with bright lights. She denies any unilateral numbness, weakness, tingling, denies vomiting or nausea, denies visual changes, and has no other concerning symptoms to report at this time. She has not taken anything for her symptoms and does not see neurology. MD elicited complaint: migraine Pertinent past history: migraines Onset (ago): hour(s) Time: 06:30 Onset description: gradually Location: left and retro-orbital Severity: severe Pain scale (0-10): 9 Exacerbating factors: movement of head/neck and light Relieving factors: nothing Context: occurred at rest Associated symptoms: Deny chest pain, fever(s), lightheadedness, nausea, rash or vomiting Treatments prior to arrival: none Review of Systems General: Reports: 10 or more systems reviewed and unremarkable except in HPI and below Const: Denies: fever(s), chills or fatigue Eyes: Denies: change in vision ENMT: Denies: throat pain, ear or mastoid pain or nasal discharge Card: Denies: chest pain, palpitations, swelling of feet/ankles or lightheadedness Resp: Denies: dyspnea, productive cough or wheezing GI: Denies: abdominal pain, nausea, vomiting, diarrhea or constipation : Denies: flank pain, difficulty voiding, dysuria or urinary frequency Musc: Denies: neck pain, back pain or joint pain Skin/Breast: Denies: rash Neuro: Reports: headache(s); Denies: numbness in extremities or weakness in extremities PFS ED PFSH: Medical History NEIDA positive Essential hypertension Irritable bowel syndrome with constipation and diarrhea No pertinent past medical history Denies diabetes, asthma, hypertension, seizures, DVT/PE PCP: EM[facility]re[facility] Migraine with aura and without status migrainosus, not intractable Migraines since age 27 Graves disease Diagnosed in 2017 Surgical History S/P dilation and curettage 2015-done for miscarriage Status post delivery X2 2002, 2005 Family History Mother Hypertension Family/Other Breast cancer maternal aunt, diagnosed at age 67 Thyroid disease maternal aunt Other Cancer Chronic kidney disease (CKD) Diabetes Rheumatoid arthritis Denies family history of Colon cancer Ovarian cancer Lupus CAD (coronary artery disease) Hyperlipidemia Uterine cancer Stroke Social History Smoking and tobacco/nicotine status: former use of tobacco/nicotine Second hand smoke exposure: No Alcohol intake: current Alcohol intake frequency: few times a month Substance/Drug Use: unknown Adopted: No Caregiver/support person: No Lives independently: Yes Household members: spouse Housing: House Marital status: Number of children: 2 service: Yes Current occupational status: employed Do you think of yourself as: Straight/Heterosexual Current gender identity: Female Physical Exam Const: COMMON NORMALS: patient oriented x3 and no limitations GENERAL APPEARANCE: cooperative and well developed ORIENTATION/CONSCIOUSNESS: Yes awake, Yes oriented to person, Yes oriented to place and Yes oriented to time OTHER: Has eyes covered with a shirt on entry into the emergency room HENMT: COMMON NORMALS: normocephalic, atraumatic and hearing grossly normal bilaterally HEAD & SCALP: normocephalic and atraumatic Eye: COMMON NORMALS: Equal, round and reactive pupils present, EOMs intact bilaterally and conjunctivae normal CONJUNCTIVA: Yes conjunctivae normal PUPIL: Yes Equal, round and reactive pupils present Neck/C-Spine: COMMON NORMALS: full ROM, supple and no JVD Resp: COMMON NORMALS: normal respiratory effort, No retractions, No use of accessory muscles and clear to auscultation bilaterally AUSCULTATION: clear to auscultation bilaterally Cardio: COMMON NORMALS: no JVD, regular rate, regular rhythm, No clicks present (Cardio), No murmurs present (Cardio) and No rub (Cardio) RATE: regular rate RHYTHM: regular rhythm Extremity: COMMON NORMALS: normal to inspection, full ROM and capillary refill normal Neuro: COMMON NORMALS: patient oriented x3, CN's II-XII intact bilaterally, moves all extremities, no focal motor deficits and no sensory deficits noted SENSORIUM/ORIENTATION: Yes oriented to person, Yes oriented to place and Yes oriented to time Psych: COMMON NORMALS: mental status grossly normal and Normal thought process present THOUGHT PROCESS: Normal thought process present Skin: COMMON NORMALS: no rashes or lesions noted GENERAL SKIN EXAM: no rashes or lesions noted Course Vital Signs: Vital signs: Vital Signs Temperature 98.3 F 09/14/23 20:20 Pulse Rate 72 09/14/23 20:20 Respiratory Rate 16 09/14/23 20:20 Blood Pressure 147/90 09/14/23 20:20 Pulse Oximetry 100 09/14/23 20:20 Oxygen Delivery Me thod Room Air 09/14/23 20:20 MDM - Headache Medical Decision Making Patient presents with migraine headache, stating that it is similar to prior migraines just feels more painful. Physical examination unremarkable, and she w as neurologically intact without any focal deficits. Her vitals are normal. Imaging not warranted at this time. She is given migraine cocktail and states that her pain went from a 9/10 to a 1/10. She is ready go home at this time and I did inform her to follow-up with primary care if she continues to have headaches for neurology referral. Strict return precautions given. No radiology studies performed this visit Discharge Plan Discharge Patient Disposition: Home Clinical Impression: Migraine Qualifiers: Migraine type: unspecified Status migrainosus presence: without status migrainosus Intractability: intractable Qualified Code(s): G43.919 - Migraine, unspecified, intractable, without status migrainosus Condition: Stable Prescriptions: No Action propranolol 20 mg tablet 20 mg PO BID Qty: 60 2RF cyclobenzaprine 5 mg tablet 5 mg PO .HS PRN (Reason: muscle pain) Qty: 90 1RF ergocalciferol (vitamin D2) 1,250 mcg (50,000 unit) capsule 1,250 mcg PO Q7D Qty: 4 5RF gabapentin 100 mg capsule 100 mg PO BID Qty: 60 1RF norelgestromin-ethin.estradiol [Zafemy] 150-35 mcg/24 hr patch weekly See Rx Instructions .ROUTE .COMPLEX Qty: 3 0RF Dose Instruction: 1 PATCH TRANSDERMALLY EVERY 7 DAYS ALLOW FOR EARLY REFILLS FOR CONTINOUS CYCLING Rx Instructions: 1 PATCH TRANSDERMALLY EVERY 7 DAYS ALLOW FOR EARLY REFILLS FOR CONTINOUS CYCLING Discharge Orders: Discharge ED (Routine); Ordered 09/14/23 Ordered By: Ibrahima Burns Referrals: Omaira Velazquez, MIRIAM [Primary Care Provider] - Discharge Diet: Usual diet Discharge Activity: Increase activity as tolerated Patient Instructions: Pain Management Activity Restrictions/Additional Instructions: Plenty of fluids at home. Please follow-up with primary care provider as discussed. Return with any new or concerning symptoms you may have. Coding Level of Care Code ED [employer] Operator for George Garza
[2023-09-14] MEDS: ketorolac 60 mg/2 mL INJ 30 MG IVP (21:27)
[2023-09-14] MEDS: ondansetron 2 mg/ML SDV 2 mL 4 MG IVP (21:28)
[2023-09-14] MEDS: dexamethasone 10 mg/mL INJ 8 MG IVP (21:29)
[2023-09-14] MEDS: diphenhydrAMINE 50 mg/mL SDV 1mL IVP (21:30)
[2023-09-14] MEDS: sodium chloride 0.9% 1,000 ML 999 ML IV (21:57)
[2023-09-15 00:59] VITALS: PULSE 78; RESP 18; O2SAT 95
== END 2023-09-14 22:30 | disposition home or self-care (01) ==
PROVIDERS: Emergency Provider Physician Assistant; PCP Nurse Practitioner
DX: G43.919 Migraine, unspecified, intractable, without status migrainosus (principal); I10 Essential (primary) hypertension; Z87.891 Personal history of nicotine dependence
CPT/HCPCS: 96374; 96375; 99285; J1100; J1200; J1885; J2405; J7030